=== PATIENT | female | born 1950 | race Caucasian/White ===

== ENCOUNTER 2016-11-28 05:08 | Day surgery (SDC) | payer MEDICARE ==
[2016-11-27 16:40] LABS: BASOPHILS 0.2 % (0.0-2.0); EOSINOPHILS 2.3 % (0-7); HEMATOCRIT 40.3 % (36.0-48.0); HEMOGLOBIN 13.2 g/dL (12-16); IMMATURE GRANULOCYTES 0.2 % (0-5); LYMPHOCYTES 48.9 % (15-50); MCH 30.1 pg (26.0-34.0); MCHC 32.8 g/dL (31.0-37.0); MEAN PLATELET VOLUME 11.2 fL (7.4-10.4); MONOCYTES 6.2 % (2-11); NEUTROPHILS 42.2 % (40-80); PLATELET COUNT 215 10x3/uL (130-400); RBC 4.38 10x6/uL (4.00-5.40); RDW 12.6 % (11.5-14.5); WBC 6.1 10x3/uL (4.8-10.8)
[2016-11-27 17:22] LABS: CALC OSMOLALITY 279 mosm/kg (275-300); CARBON DIOXIDE 24.5 mmol/L (21.0-32.0); CHLORIDE - SERUM 103 mmol/L (98-107); CREATININE - SERUM 0.8 mg/dL (0.6-1.3); SODIUM 140 mmol/L (136-145); UREA NITROGEN 19 mg/dL (7-18); eGFR NON AFRICAN AMERICAN 76 mL/min (90-120)
[2016-11-27 17:24] LABS: GLUCOSE 81 mg/dL (74-106)
[~2016-11-28] VITALS: Ht 165.1 cm; Wt 84.8 kg
--- NOTE | ~2016-11-28 | OP ---
PATIENT NAME: GIANFRANCO ROTH MEDICAL RECORD: [id number] :50 LOCATION:D.OPS ADMISSION DATE: SURGEON: JOSEPH JANSEN MD DATE OF OPERATION: 11/28/2016 PREOPERATIVE DIAGNOSES: 1. Ventral incisional hernia. 2. Diabetes mellitus. 3. Hypertension. POSTOPERATIVE DIAGNOSES: 1. Ventral incisional hernia. 2. Diabetes mellitus. 3. Hypertension. PROCEDURE: Ventral hernia repair with 6.4 cm Proceed patch. SURGEON: Joseph Jansen MD REPORT OF PROCEDURE: The patient's abdomen was prepped and draped in sterile fashion. A skin incision was made through the midline near the umbilicus and extending up towards the epigastric region. Electrocautery was used to dissect through subcutaneous tissues. We went through the fascia and encountered some previously placed midline mesh and through this mesh, we were able to get into the abdominal cavity. The patient had some omentum that was adherent to the anterior abdominal wall and the mesh and this was taken down carefully with blunt dissection and electrocautery. Once we had all of this down, I could inspect the patient's entire abdominal wall. I could feel a laxity to the fascia just above the mesh in the epigastric region. The opening was small and I could feel the fascial ledges quite well. I placed a 6.4 cm Proceed patch over this area and then sutured it into place with multiple interrupted 0 Prolenes. This appeared to rest in good position and covered up the hernia defect. The mesh was then closed in the midline using running 0 Prolene. The fascia and overlying tissues were then closed over top of this using running 0 Vicryls. The skin incision was then irrigated out and then closed with running subcutaneous 4-0 Monocryl. COMPLICATIONS: None. CONDITION: Stable. ANESTHESIA: General endotracheal. BLOOD LOSS: 50 mL. TRANSINT:[id number] Voice Confirmation ID: [id number] DOCUMENT ID: [id number] OPERATIVE REPORT [id number] ROTHGIANFRANCO SHAW JOSEPH JANSEN MD CC: FRANCISCO TAMAYO DO [id number] DICTATION DATE: 11/28/16 0914 RECREATIONAL VEHICLE RESORT MANAGER: 11/28/16 1108 [facility] 11/28/16 [place] [address]
[~2016-11-28 05:08] MED LIST: ASPIRIN EC81 M1 PO; FEXOFENADINE H180 MG PO; GEMFIBROZIL600 MG PO; GLUCOPHAGE500 MG PO; GLUCOTROL 5 MG T5 MG PO; HUMALOG 30100 UNITS/ SC; HYDROCODONE-APA1 TAB PO; LANTUS INSULIN10 ML SC; LISINOPRIL2.5 MG PO; LYRICA200 MG PO; PREVACID15 MG PO; PRILOSEC20 MG PO; SYNTHROID25 MCG PO; ZOCOR40 MG PO
[2016-11-28 06:20] VITALS: BP 107/64; Ht 165.1 cm; Wt 84.8 kg
[2016-11-28] MEDS ORDERED: HYDROCODONE-APA1 TAB PO (09:09)
== END 2016-11-28 10:40 | disposition home or self-care (01) ==
LOC: D.OPS 05:08 → D.PAN 07:30 → D.OPS 07:30
PROVIDERS: Surgery
DX: K43.2 Incisional hernia without obstruction or gangrene (principal); I10 Essential (primary) hypertension; E11.9 Type 2 diabetes mellitus without complications; E03.9 Hypothyroidism, unspecified; K21.9 Gastro-esophageal reflux disease without esophagitis

== ENCOUNTER → 2018-02-02 13:13 | Outpatient (CLI) | payer MEDICARE ==
[2016-11-28 06:20] VITALS: BMI 31.1
== END | disposition home or self-care (01) ==
LOC: D.MRI 13:13
DX: M54.5 Low back pain (principal)

== ENCOUNTER 2018-11-22 10:04 | Inpatient (IN) | payer MEDICARE ==
[2018-11-22] VITALS (7 sets, daily range): BP systolic 100–119; BP diastolic 69–80
[~2018-11-22] VITALS: Ht 165.1 cm; Wt 81.6 kg
--- NOTE | 2018-11-22 10:45 | NUR ---
URINE SPECIMEN SENT TO LAB VIA TUBE SYSTEM.
--- NOTE | 2018-11-22 10:56 | NUR ---
LAB DRAWN VIA IV. SENT TO LAB.
[2018-11-22 11:06] LABS: BASOPHILS 0.2 % (0-2); EOSINOPHILS 0.5 % (0-7); HEMOGLOBIN 14.4 g/dL (12-16); IMMATURE GRANULOCYTES 0.2 % (0-5); LYMPHOCYTES 18.2 % (15-50); MCH 30.6 pg (26.0-34.0); MCHC 34.3 g/dL (31.0-37.0); MCV 89.2 fL (80.0-100.0); MEAN PLATELET VOLUME 10.2 fL (7.4-10.4); MONOCYTES 3.8 % (2-11); NEUTROPHILS 77.1 % (40-80); PLATELET COUNT 253 10x3/uL (130-400); RBC 4.71 10x6/uL (4.00-5.40); RDW 12.7 % (11.5-14.5); WBC 10.2 10x3/uL (4.8-10.8)
[2018-11-22 11:17] LABS: AMORPHOUS SEDIMENT <1+ /lpf (NONE SEEN); APPEARANCE CLEAR (CLEAR); BACTERIA MANY /hpf (NONE SEEN); BILIRUBIN NEGATIVE (NEGATIVE); COLOR YELLOW (YELLOW); EPITHELIAL CELLS 0-5 /hpf (0-5); GLUCOSE NEGATIVE (NEGATIVE); KETONE NEGATIVE (NEGATIVE); MUCUS <1+ /lpf (NONE SEEN); NITRITE POSITIVE (NEGATIVE); PROTEIN NEGATIVE (NEGATIVE); RED CELLS - URINE 0-5 /hpf (0-5); UROBILINOGEN NORMAL (NORMAL)
[2018-11-22 11:38] LABS: ALBUMIN 4.5 g/dL (3.4-5.0); ALKALINE PHOSPHATASE 61 U/L (46-116); ALT (SGPT) 50 U/L (10-68); AMYLASE - SERUM 51 U/L (25-115); BILIRUBIN - TOTAL 0.78 mg/dL (0.2-1.3); CALC OSMOLALITY 271 mosm/kg (275-300); CALCIUM 9.6 mg/dL (8.5-10.1); CARBON DIOXIDE 26.6 mmol/L (21.0-32.0); CHLORIDE - SERUM 95 mmol/L (98-107); CREATININE - SERUM 0.8 mg/dL (0.6-1.3); GLUCOSE 169 mg/dL (74-106); LIPASE 178 U/L (73-393); POTASSIUM - SERUM 4.5 mmol/L (3.5-5.1); PROTEIN - SERUM 8.4 g/dL (6.4-8.2); SODIUM 134 mmol/L (136-145); UREA NITROGEN 13 mg/dL (7-18); eGFR NON AFRICAN AMERICAN 75 mL/min (90-120)
--- NOTE | 2018-11-22 12:46 | NUR ---
PATIENT REASESSED. SHE IS AWAKE AND ALERT. UPDATED ON PLAN OF CARE AND DELAYS IN CARE. WILL CONTINUE TO MONITOR.
--- NOTE | 2018-11-22 13:30 | NUR ---
PATIENT IS SITTING ON THE SIDE OF THE BED. STATES SHE SOMETIMES HAS LEG CRAMPS AND NEEDS TO STRETCH THEM OUT. SHE IS AWAKE AND ALERT. UPDATED ON PLAN OF CARE AND DELAYS IN CARE. NO NEEDS NOTED. WILL CONTINUE TO MONITOR.
--- NOTE | 2018-11-22 15:15 | NUR ---
PATIENT NGT HOOKED UP TO LOW INTTERMITTENT SUCTION. GREENISH COLORED GASTRIC CONTENTS PRESENT. SHE IS CURRENTLY ON THE PHONE WITH HER DAUGHTER. NO DISTRESS NOTED. UPDATED ON PLAN OF CARE.
--- NOTE | 2018-11-22 15:17 | NUR ---
ATTEMPTED TO CALL REPORT TO TRANSPORT PATIENT TO UNIT. NO ANSWER. WILL CONTINUE TO CALL.
--- NOTE | 2018-11-22 16:29 | NUR ---
ARRIVES TO THE FLOOR VIA BED FROM ER. ALERT AND ORIENTED X4. AMBULATES TO BED FROM STRETCHER. NG TUBE HOOKED TO WALL SUCTION LOW INTERMITTENT. LT AC IV INFUSING ORDERED. REFUSE SCDs. INITIATE NPO STATUS. CONTINUE ADMISSION PROCESS. CONTINUE PLAN OF CARE AND SAFETY PRECAUTIONS.
[2018-11-22] MEDS ORDERED: GABAPENTIN100 MG PO (16:38)
--- NOTE | 2018-11-22 19:27 | NUR ---
ASSISTED PT TO BATHROOM PER REQUEST. LINEN CHANGED WHILE IN BATHROOM PT DENIES FURTHER NEEDS AT THIS TIME.
--- NOTE | 2018-11-22 23:25 | NUR ---
PT C/O PAIN TO ABD. RN CHARGE NOT IN ROOM . ASKED PT IF SHE WOULD LIKE RN CHARGE SET UP. SHE SAID NO.
[2018-11-23] VITALS (7 sets, daily range): BP systolic 95–129; BP diastolic 57–77; Ht 165.1 cm; Wt 81.6 kg
--- NOTE | 2018-11-23 03:33 | NUR ---
PT COMPLAINS OF WORSENING STOMACH PAIN AND STATES "THIS TUBE IS NOT WORKING" UPON EXAM OF TUBE GREEN DRAINAGE NOTED NOT MOVING UP TUBE WHEN CONNECTED TO SUCTION. AFTER TROUBLE SHOOTING THE TUBE AND SUCTION DEVICE IT WAS NOTED THAT THE WALL CONNECTION PIECE WAS LEAKING AIR. NEW SUCTION DEVICE OBTAINED. PT STATES "DIGNA BEEN SITTING HERE WITH THIS TUBE UP MY NOSE FOR NO REASON. IM LEAVING TODAY. THIS ISNT GOING TO WORK. ME AND THAT DOCTOR ARE GOING TO HAVE A TALK" EXPLAINED TO PT THAT TUBE IS NOW IN WORKING CONDITION. PT DID NOT REPLY.
--- NOTE | 2018-11-23 04:01 | NUR ---
I have reviewed this patient and I concur with the Shift Assessment completed by the Licensed Practical Nurse today this shift.
--- NOTE | 2018-11-23 04:39 | NUR ---
PT EXPRESSES DISPLEASURE WITH NG TUBE STATING "I WANT THIS OUT. ITS IN HERE FOR NOTHING" PT ASKED TO SPEAK WITH A DR AND WAS INFORMED THAT THE ONLY DOCTOR IN THE HOSPITAL IS IN THE ER. PT STATES "WELL IM NOT JUST GOING TO SIT HERE. IM HUNGRY, TIRED AND IRRITABLE." A SECOND AND THIRD NURSE BROUGHT IN ROOM TO ENSURE CORRECT SET UP AND FUNCTION OF NG. BOTH AGREED IT WAS SET UP CORRECTLY. PT REQUESTED "TIME TO THINK" AND SAID SHE WOULD CALL WHEN SHE WAS READY.
[2018-11-23 07:38] LABS: BASOPHILS 0.2 % (0-2); EOSINOPHILS 0.7 % (0-7); HEMATOCRIT 39.8 % (36.0-48.0); HEMOGLOBIN 13.2 g/dL (12-16); IMMATURE GRANULOCYTES 0.2 % (0-5); LYMPHOCYTES 22.3 % (15-50); MCH 29.9 pg (26.0-34.0); MCHC 33.2 g/dL (31.0-37.0); MEAN PLATELET VOLUME 10.3 fL (7.4-10.4); MONOCYTES 6.5 % (2-11); NEUTROPHILS 70.1 % (40-80); PLATELET COUNT 222 10x3/uL (130-400); RBC 4.42 10x6/uL (4.00-5.40); RDW 12.9 % (11.5-14.5)
[2018-11-23 07:41] LABS: WBC 6.1 10x3/uL (4.8-10.8)
[2018-11-23 07:46] LABS: CALC OSMOLALITY 283 mosm/kg (275-300); CALCIUM 8.3 mg/dL (8.5-10.1); CARBON DIOXIDE 27.8 mmol/L (21.0-32.0); CHLORIDE - SERUM 102 mmol/L (98-107); CREATININE - SERUM 0.7 mg/dL (0.6-1.3); GLUCOSE 184 mg/dL (74-106); POTASSIUM - SERUM 4.4 mmol/L (3.5-5.1); SODIUM 140 mmol/L (136-145); UREA NITROGEN 12 mg/dL (7-18); eGFR NON AFRICAN AMERICAN 88 mL/min (90-120)
[2018-11-23 09:49] LABS: APTT 24.4 SECONDS (22.8-39.4); INR 0.99 (0.85-1.17); PROTIME 12.6 SECONDS (11.6-15.0)
--- NOTE | 2018-11-23 10:02 | MORECARE ---
CASE MANAGEMENT DISCHARGE SUMMARY PATIENT: GIANFRANCO ROTH UNIT: [id number] ADM DATE: 11/22/18 AGE: 68 : 50 SEX: F ROOM/BED: D.1210 AUTHOR: MAG BERNARDO PHYSICIAN: REFERRING PHYSICIAN: CAROL HOWARD MD DATE OF SERVICE: 11/23/18 Discharge Plan Patient Name: GIANFRANCO ROTH Facility: [facility]:[place] : 1950 Planned Disposition: Home Anticipated Discharge Date: Discharge Date: Expected LOS: Initial Reviewer: [email or web address] Initial Review Date: 11/22/2018 Generated: 11/23/18 11:01 am Patient Name: GIANFRANCO ROTH Page 77696 at 1002 All edits/amendments must be made on the electronic document DICTATION DATE: 11/23/18 1001 GLUE MAKER: FAY 11/23/18 1001 RPT#: [id number] DC DATE: STATUS: ADM IN [facility] [address] [place] [address] END OF REPORT
--- NOTE | 2018-11-23 10:08 | MORECARE ---
CASE MANAGEMENT DISCHARGE SUMMARY PATIENT: GIANFRANCO ROTH UNIT: [id number] ADM DATE: 11/22/18 AGE: 68 : 50 SEX: F ROOM/BED: D.1210 AUTHOR: MAG BERNARDO PHYSICIAN: REFERRING PHYSICIAN: CAROL HOWARD MD DATE OF SERVICE: 11/23/18 Discharge Plan Patient Name: GIANFRANCO ROTH Facility: [facility]:[place] : 1950 Planned Disposition: Home Anticipated Discharge Date: Discharge Date: Expected LOS: Initial Reviewer: [email or web address] Initial Review Date: 11/22/2018 Generated: 11/23/18 11:08 am DCPIA - Discharge Planning Initial Assessment Updated by [email or web address]: Cathy Le on 11/23/18 10:05 am * Is the patient Alert and Oriented? Yes * How many steps to enter\exit or inside your home? none * PCP DR Aguilar * Pharmacy [facility] * Preadmission Environment Home Alone * ADLs Independent * Equipment None * Other Equipment Denies any DME * List name and contact numbers for known caregivers / representatives who currently or will assist patient after discharge: Clyde [facility] - [phone] * Verbal permission to speak to the caregivers and representatives has been obtained from the patient. No * Community resources currently utilized None * Please name any agencies selected above. N/A * Additional services required to return to the preadmission environment? No * Can the patient safely return to the preadmission environment? Yes * Has this patient been hospitalized within the prior 30 days at any hospital? No Last DP export: 11/23/18 9:02 am Patient Name: GIANFRANCO ROTH Page 28632 at 1008 All edits/amendments must be made on the electronic document DICTATION DATE: 11/23/18 100 FLORAL ASSOCIATE: FAY 11/23/18 100 RPT#: [id number] DC DATE: STATUS: ADM IN [facility] [address] [place] [address] END OF REPORT
--- NOTE | 2018-11-23 10:21 | MORECARE ---
CASE MANAGEMENT DISCHARGE SUMMARY PATIENT: GIANFRANCO ROTH UNIT: [id number] ADM DATE: 11/22/18 AGE: 68 : 50 SEX: F ROOM/BED: D.1210 AUTHOR: TOVA,DOC PHYSICIAN: REFERRING PHYSICIAN: CAROL HOWARD MD DATE OF SERVICE: 11/23/18 Discharge Plan Patient Name: GIANFRANCO ROTH Facility: [facility]:[place] : 1950 Planned Disposition: Home Anticipated Discharge Date: Discharge Date: Expected LOS: Initial Reviewer: [email or web address] Initial Review Date: 11/22/2018 Generated: 11/23/18 11:20 am Comments DCP- Discharge Planning Updated by [email or web address]: Cathy Le on 11/23/18 9:[address] MET WITH THE PATIENT AT THE BEDSIDE. SHE IS ALERT AND ORIENTED X4. HAS SIGIFICANT DRAINAGE GREEN VIA HER N/G TUBE. SHE SAYS SHE IS FAIRLY COMFORTABLE. SHE STATES SHE THINKS SHE IS GOING TO SURGERY BUT NO SURGEON OR MD HAS SPOKEN WITH HER OF THIS TIME. SHE JUST HAD A PREOP XRAY DONE AT THE BEDSIDE. CM SPOKE WITH THE NURSE. THEY DO HAVE ORDERS FOR SURGERY TODAY. CM ADVISED THE PATIENT WOULD LIKE TO KNOW HER DIAGNOSIS AND SPEAK WITH THE SURGEON. DIANE CALLED SURGERY TO GIVE THE PT'S MESSAGE. PT LIVES AT [facility]. NO STAIRS, HAS AN ELEVATOR. HAS NO DME. 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 SHE HAS NEVER HAD HOME HEALTH AND DOES NOT FEEL SHE WILL NEED IT THIS TIME. CM EXPLAINED CASE MGT WOULD ASSIST IF SHE HAS A NEED FOR SERVICES AT DISCHARGE. SHE WILL HAVE TRANSPORTATION TO HOME. [facility]. DCPIA - Discharge Planning Initial Assessment Updated by [email or web address]: Cathy Le on 11/23/18 10:05 am * Is the patient Alert and Oriented? Yes * How many steps to enter\exit or inside your home? none * PCP DR Tamayo * Pharmacy [facility] [place] * Preadmission Environment Home Alone * ADLs Independent * Equipment None * Other Equipment Denies any DME * List name and contact numbers for known caregivers / representatives who currently or will assist patient after discharge: [facility]de [employer] - [phone] * Verbal permission to speak to the caregivers and representatives has been obtained from the patient. No * Community resources currently utilized None * Please name any agencies selected above. N/A * Additional services required to return to the preadmission environment? No * Can the patient safely return to the preadmission environment? Yes * Has this patient been hospitalized within the prior 30 days at any hospital? No Last DP export: 11/23/18 9:08 am Patient Name: GIANFRANCO ROTH Page 28600 at 1021 All edits/amendments must be made on the electronic document DICTATION DATE: 11/23/18 1020 ARTIST REPRESENTATIVE: FAY 11/23/18 1020 RPT#: [id number] DC DATE: STATUS: ADM IN [facility] [address] [place] [address] END OF REPORT
--- NOTE | 2018-11-23 11:09 | NUR ---
ALERT AND ORIENTED X4. SITTING UP IN BED. REFUSE TO SIGN CONSENTS FOR PROCEDURE UNTIL SPOKEN TO DOCTOR. INFORM ANESTHESIA AND CALLED OR DUE TO IN PROCEDURE. CONTINUE PLAN OF CARE AND SAFETY PRECAUTIONS.
--- NOTE | 2018-11-23 13:23 | NUR ---
ALERT AND ORIENTED X4. RESTING IN BED. CONSENTS FOR PROCEDURE SIGNED ON CHART. TAKEN TO PROCEDURE VIA BED. CONTINUE PLAN OF CARE AND SAFETY PRECAUTIONS.
--- NOTE | 2018-11-23 16:41 | NUR ---
RETURN TO ROOM VIA BED FROM SURGERY. NG TUBE REMAINS IN PLACE. HOOKED TO WALL LOW INTERMITTENT SUCTION. BP-129/79, O2-93% WITH 3L, HR-79, T-97.8, R-14. 4 ABDOMINAL INCISIONS STERI STRIPS INTACT. LT FLANK INCISION OOZING SCANT BLOOD. APPLY 4X4 OVER SITE. IV FLUIDS INFUSING ORDERED. DENIES ANY NEEDS. CONTINUE PLAN OF CARE AND SAFETY PRECAUTIONS.
--- NOTE | 2018-11-23 21:10 | NUR ---
PT RESTING IN BED, NG TUBE SET TO INTERMITTNET SUCTION. CANISTER CHANGED. WCTM.
--- NOTE | 2018-11-24 03:20 | NUR ---
PT RESTING IN BED, UNABLE TO SLEEP AT THIS TIME. WCTM.
[2018-11-24 04:30] VITALS: BP 108/69
[2018-11-24 06:37] LABS: BASOPHILS 0.1 % (0-2); EOSINOPHILS 0.3 % (0-7); HEMOGLOBIN 10.9 g/dL (12-16); IMMATURE GRANULOCYTES 0.3 % (0-5); MCH 29.7 pg (26.0-34.0); MCHC 32.1 g/dL (31.0-37.0); MEAN PLATELET VOLUME 10.1 fL (7.4-10.4); MONOCYTES 4.9 % (2-11); NEUTROPHILS 80.4 % (40-80); PLATELET COUNT 201 10x3/uL (130-400); RBC 3.67 10x6/uL (4.00-5.40); RDW 13.1 % (11.5-14.5); WBC 7.6 10x3/uL (4.8-10.8)
[2018-11-24 06:38] LABS: MCV 92.6 fL (80.0-100.0)
[2018-11-24 08:10] LABS: CALCIUM 7.4 mg/dL (8.5-10.1); CARBON DIOXIDE 25.4 mmol/L (21.0-32.0); CREATININE - SERUM 0.6 mg/dL (0.6-1.3); GLUCOSE 212 mg/dL (74-106); UREA NITROGEN 10 mg/dL (7-18); eGFR NON AFRICAN AMERICAN > 90 mL/min (90-120)
[2018-11-24 08:34] LABS: CALC OSMOLALITY 280 mosm/kg (275-300); CHLORIDE - SERUM 104 mmol/L (98-107); POTASSIUM - SERUM 4.1 mmol/L (3.5-5.1); SODIUM 138 mmol/L (136-145)
[2018-11-24 09:23] VITALS: BP 108/68
--- NOTE | 2018-11-24 10:23 | NUR ---
ALERT AND ORIENTED X4. DC NG TUBE ORDERED. UP AMBULATING IN [place]. GAIT STEADY. DENIES ANY NEEDS AT THIS TIME. CONTINUE PLAN OF CARE AND SAFETY PRECAUTIONS.
[2018-11-24 12:30] VITALS: BP 120/72
[2018-11-24 16:15] VITALS: BP 121/73
[2018-11-24 20:00] VITALS: BP 118/69
--- NOTE | 2018-11-24 23:34 | NUR ---
BLOOD SUGAR OF 208, 4 UNITS OF HUMALOG GIVEN PER S/S. PT RESTING COMFORTABLY, DENIES ANY NEEDS AT THIS TIME. AARON CAMPA GETTING PT'S VITAL SIGNS. CALL LIGHT IN REACH, NAD NOTED, WILL CONTINUE TO MONITOR.
[2018-11-24 23:57] VITALS: BP 116/72
--- NOTE | 2018-11-25 00:13 | NUR ---
PT UP AMBULATING IN THE HALLWAY, DENIES ANY NEEDS AT THIS TIME. NAD NOTED, WILL CONTINUE TO MONITOR.
--- NOTE | 2018-11-25 03:50 | NUR ---
HELPED PT OFF BEDPAN, PT HAD SMALL SOFT BM.
[2018-11-25 04:30] VITALS: BP 126/78
--- NOTE | 2018-11-25 07:30 | NUR ---
REC'D IN BED AWAKE AND ALERT. RESP EVEN AND UNLABORED WITH NO DISTRESS NOTED. CAN EXPRESS NEEDS AND WANTS. NO C/O NOTED OR VOICED. ASSESMENT COMPLETED. C/L IN REACH ATG BEDSIDE
[2018-11-25 08:02] LABS: BASOPHILS 0.1 % (0-2); EOSINOPHILS 1.5 % (0-7); HEMATOCRIT 31.7 % (36.0-48.0); HEMOGLOBIN 10.4 g/dL (12-16); IMMATURE GRANULOCYTES 0.3 % (0-5); LYMPHOCYTES 14.5 % (15-50); MCH 29.9 pg (26.0-34.0); MCHC 32.8 g/dL (31.0-37.0); MCV 91.1 fL (80.0-100.0); MONOCYTES 6.4 % (2-11); NEUTROPHILS 77.2 % (40-80); PLATELET COUNT 190 10x3/uL (130-400); RBC 3.48 10x6/uL (4.00-5.40); RDW 13.1 % (11.5-14.5); WBC 9.1 10x3/uL (4.8-10.8)
[2018-11-25 08:17] LABS: CALC OSMOLALITY 283 mosm/kg (275-300); CALCIUM 7.8 mg/dL (8.5-10.1); CARBON DIOXIDE 27.1 mmol/L (21.0-32.0); CHLORIDE - SERUM 104 mmol/L (98-107); CREATININE - SERUM 0.5 mg/dL (0.6-1.3); GLUCOSE 202 mg/dL (74-106); SODIUM 141 mmol/L (136-145); eGFR NON AFRICAN AMERICAN > 90 mL/min (90-120)
[2018-11-25 08:20] LABS: UREA NITROGEN 5 mg/dL (7-18)
[2018-11-25] MEDS ORDERED: SULFAMETHOXAZOL1 TA3 PO (08:42)
[2018-11-25] MEDS ORDERED: HYDROCODON-ACE1 EAC7 PO (08:42)
[2018-11-25 09:12] VITALS: BP 142/82
[2018-11-25 12:53] VITALS: BP 133/85
--- NOTE | 2018-11-25 14:18 | MORECARE ---
CASE MANAGEMENT DISCHARGE SUMMARY PATIENT: GIANFRANCO ROTH UNIT: [id number] ADM DATE: 11/22/18 AGE: 68 : 50 SEX: F ROOM/BED: D.1210 AUTHOR: TOVA,DOC PHYSICIAN: REFERRING PHYSICIAN: CAROL HOWARD MD DATE OF SERVICE: 11/25/18 Discharge Plan Patient Name: GIANFRANCO ROTH Facility: [facility]:[place] : 1950 Planned Disposition: Home Anticipated Discharge Date: Discharge Date: Expected LOS: Initial Reviewer: [id number] Initial Review Date: 11/22/2018 Generated: 11/25/18 3:17 pm Comments DCP- Discharge Planning Updated by [id number]: Linda Alexander on 11/25/18 1:[address] Patient Name: GIANFRANCO ROTH Encounter No: [id number] : 1950 Primary Insurance: [facility] MEDICARE SOLUTIONS Anticipated DC Date: Planned Disposition: Home External Planned Provider: : DCP follow-up note: Patient and family in agreement with discharge plan. No changes to plan. CM explained and served DC IMM. Case management will follow and assist as needed. Linda Alexander DCP- Discharge Planning Updated by [email or web address]: Cathy Le on 11/23/18 9:[address] MET WITH THE PATIENT AT THE BEDSIDE. SHE IS ALERT AND ORIENTED X4. HAS SIGIFICANT DRAINAGE GREEN VIA HER N/G TUBE. SHE SAYS SHE IS FAIRLY COMFORTABLE. SHE STATES SHE THINKS SHE IS GOING TO SURGERY BUT NO SURGEON OR MD HAS SPOKEN WITH HER OF THIS TIME. SHE JUST HAD A PREOP XRAY DONE AT THE BEDSIDE. CM SPOKE WITH THE NURSE. THEY DO HAVE ORDERS FOR SURGERY TODAY. CM ADVISED THE PATIENT WOULD LIKE TO KNOW HER DIAGNOSIS AND SPEAK WITH THE SURGEON. DIANE CALLED SURGERY TO GIVE THE PT'S MESSAGE. PT LIVES AT [facility]. NO STAIRS, HAS AN ELEVATOR. HAS NO DME. 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 SHE HAS NEVER HAD HOME HEALTH AND DOES NOT FEEL SHE WILL NEED IT THIS TIME. MANUELITO EXPLAINED CASE MGT WOULD ASSIST IF SHE HAS A NEED FOR SERVICES AT DISCHARGE. SHE WILL HAVE TRANSPORTATION TO HOME. CM TO FOLLOW TO ASISIST IS APPROPRIATE. DCPIA - Discharge Planning Initial Assessment Updated by [id number]: Cathy Le on 11/23/18 10:05 am * Is the patient Alert and Oriented? Yes * How many steps to enter\exit or inside your home? none * PCP DR Tamayo * Pharmacy [facility] [place] * Preadmission Environment Home Alone * ADLs Independent * Equipment None * Other Equipment Denies any DME * List name and contact numbers for known caregivers / representatives who currently or will assist patient after discharge: Clyde [facility] - [phone] * Verbal permission to speak to the caregivers and representatives has been obtained from the patient. No * Community resources currently utilized None * Please name any agencies selected above. N/A * Additional services required to return to the preadmission environment? No * Can the patient safely return to the preadmission environment? Yes * Has this patient been hospitalized within the prior 30 days at any hospital? No Coverage Notice Reviewer: [email or web address] Arslan Alexander Notice Issued Date-Time: 11/25/2018 14:11 Notice Type: IM Discharge Notice Notice Delivered To: Patient Relationship to Patient: Self Legal Librarian Name: Delivery Method: HAND - Hand Delivered Lacy Days: Prior Verbal Notification: Recipient Understood Notice: Yes Recipient Signature: Yes Med Rec Note Co-signed by Attending: Coverage Notice Comment: Last DP export: 11/23/18 9:20 am Patient Name: GIANFRANCO ROTH Page 93526 at 1418 All edits/amendments must be made on the electronic document DICTATION DATE: 11/25/181416 INSPECTOR CONVEYOR LINE: FAY 11/25/181416 RPT#: [id number] DC DATE: STATUS: ADM IN [facility] [address] [place] [address] END OF REPORT
--- NOTE | 2018-11-25 17:03 | NUR ---
DC SUMMARY GIVEN AT THIS TIME VOICE UNDERSTANDING. GIVEN 1 RX NORCO 5 MG 1 TAB Q4 HRS PRN FOR ABD CRAMPS/PAIN.
--- NOTE | 2018-11-26 16:03 | MORECARE ---
CASE MANAGEMENT DISCHARGE SUMMARY PATIENT: GIANFRANCO ROTH UNIT: [id number] ADM DATE: 11/22/18 AGE: 68 : 50 SEX: F ROOM/BED: D.1210 AUTHOR: TOVADOC PHYSICIAN: REFERRING PHYSICIAN: CAROL HOWARD MD DATE OF SERVICE: 11/26/18 Discharge Plan Patient Name: GIANFRANCO ROTH Facility: [facility]:[place] : 1950 Planned Disposition: Home Anticipated Discharge Date: Discharge Date: 11/25/2018 Expected LOS: Initial Reviewer: [email or web address] Initial Review Date: 11/22/2018 Generated: 11/26/18 5:03 pm Comments DCP- Discharge Planning Updated by [id number]: Linda Alexander on 11/25/18 1:[address] Patient Name: GIANFRANCO ROTH Encounter No: [id number] : 1950 Primary Insurance: [facility] MEDICARE SOLUTIONS Anticipated DC Date: Planned Disposition: Home External Planned Provider: : DCP follow-up note: Patient and family in agreement with discharge plan. No changes to plan. CM explained and served DC IMM. Case management will follow and assist as needed. Linda Alexander DCP- Discharge Planning Updated by [id number]: Cathy Mimi on 11/23/18 9:[address] MET WITH THE PATIENT AT THE BEDSIDE. SHE IS ALERT AND ORIENTED X4. HAS SIGIFICANT DRAINAGE GREEN VIA HER N/G TUBE. SHE SAYS SHE IS FAIRLY COMFORTABLE. SHE STATES SHE THINKS SHE IS GOING TO SURGERY BUT NO SURGEON OR MD HAS SPOKEN WITH HER OF THIS TIME. SHE JUST HAD A PREOP XRAY DONE AT THE BEDSIDE. MANUELITO SPOKE WITH THE NURSE. THEY DO HAVE ORDERS FOR SURGERY TODAY. CM ADVISED THE PATIENT WOULD LIKE TO KNOW HER DIAGNOSIS AND SPEAK WITH THE SURGEON. DIANE CALLED SURGERY TO GIVE THE PT'S MESSAGE. PT LIVES AT [facility]. NO STAIRS, HAS AN ELEVATOR. HAS NO DME. 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 SHE HAS NEVER HAD HOME HEALTH AND DOES NOT FEEL SHE WILL NEED IT THIS TIME. CM EXPLAINED CASE MGT WOULD ASSIST IF SHE HAS A NEED FOR SERVICES AT DISCHARGE. SHE WILL HAVE TRANSPORTATION TO HOME. CM TO FOLLOW TO ASISIST IS APPROPRIATE. DCPIA - Discharge Planning Initial Assessment Updated by [id number]: Cathy Le on 11/23/18 10:05 am * Is the patient Alert and Oriented? Yes * How many steps to enter\exit or inside your home? none * PCP DR Tamayo * Pharmacy [facility] [place] * Preadmission Environment Home Alone * ADLs Independent * Equipment None * Other Equipment Denies any DME * List name and contact numbers for known caregivers / representatives who currently or will assist patient after discharge: Clyde Galan - [phone] * Verbal permission to speak to the caregivers and representatives has been obtained from the patient. No * Community resources currently utilized None * Please name any agencies selected above. N/A * Additional services required to return to the preadmission environment? No * Can the patient safely return to the preadmission environment? Yes * Has this patient been hospitalized within the prior 30 days at any hospital? No Coverage Notice Reviewer: [email or web address] Arslan Alexander Notice Issued Date-Time: 11/25/2018 14:11 Notice Type: IM Discharge Notice Notice Delivered To: Patient Relationship to Patient: Self Commercial Loan Coordinator Name: Delivery Method: HAND - Hand Delivered Lacy Days: Prior Verbal Notification: Recipient Understood Notice: Yes Recipient Signature: Yes Med Rec Note Co-signed by Attending: Coverage Notice Comment: Last DP export: 11/25/18 1:18 p Patient Name: GIANFRANCO ROTH Page 18357 at 1603 All edits/amendments must be made on the electronic document DICTATION DATE: 11/26/18 1602 COAGULATOR: FAY 11/26/18 160 RPT#: [id number] DC DATE:11/25/18 STATUS: DIS IN [facility] [address] [place] [address] END OF REPORT
== END 2018-11-25 17:29 | disposition home or self-care (01) | DRG 354 ==
LOC: D.ER 10:04 → D.M3 13:32 → D.EDHOLD 13:32 → D.M3 15:01
PROVIDERS: Emergency Medicine; Surgery; ADMIT Family Medicine; ATTEND Family Medicine
PROC: 0WUF4JZ Supplement Abdominal Wall with Synthetic Substitute, Percutaneous Endoscopic Approach (ICD-10-PCS; principal; 2018-11-23 17:30)
DX: K43.6 Other and unspecified ventral hernia with obstruction, without gangrene (principal); E87.1 Hypo-osmolality and hyponatremia; N39.0 Urinary tract infection, site not specified; I10 Essential (primary) hypertension; B19.20 Unspecified viral hepatitis C without hepatic coma; E11.42 Type 2 diabetes mellitus with diabetic polyneuropathy; M79.7 Fibromyalgia; K66.0 Peritoneal adhesions (postprocedural) (postinfection)